=== PATIENT | male | born 1990 | race African-American/Black ===

== ENCOUNTER 2021-02-19 12:56 | Emergency (ER) | payer SELFPAY ==
[2021-02-19] MEDS ORDERED: Ibuprofen 800 MG TAB ONE (13:12)
== END 2021-02-19 13:37 | disposition home or self-care (01) ==
LOC: BURERS 12:56
DX: S62.360A Nondisplaced fracture of neck of second metacarpal bone, right hand, initial encounter for closed fracture (principal); Y04.2XXA Assault by strike against or bumped into by another person, initial encounter
CPT/HCPCS: 26600